=== PATIENT | male | born 1975 | race Native Hawaiian/Other Pacific Islander ===

== ENCOUNTER 2020-07-09 12:33 | Outpatient (CLI) | payer OTHER | END 2020-07-09 23:58 | disposition home or self-care (01) | LOC: MRI 12:33 | DX: M54.16 Radiculopathy, lumbar region (principal); M54.6 Pain in thoracic spine | CPT/HCPCS: A9576 ==

== ENCOUNTER 2020-09-08 11:08 | Outpatient (CLI) | payer OTHER ==
[2020-08-12 09:49] LABS: PARTIAL THROMBOPLASTIN TIME 25.1 SECONDS (24.5-33.6)
[~2020-09-08] VITALS: Ht 30.5 cm; Wt 0.5 kg
== END 2020-09-08 19:49 | disposition home or self-care (01) ==
LOC: CT 11:08
PROVIDERS: ATTEND Neurological Surgery
DX: R22.2 Localized swelling, mass and lump, trunk (principal)
CPT/HCPCS: 36415; 82565; 84520; 85610; 85730; Q9963

== ENCOUNTER 2020-11-08 14:05 | Outpatient (CLI) | payer OTHER | END 2020-11-08 20:46 | disposition home or self-care (01) | LOC: LAB 14:05 → MRI 14:05 | PROVIDERS: ATTEND Neurological Surgery | DX: M54.6 Pain in thoracic spine (principal) | CPT/HCPCS: 36415; 82565; 84520; A9576 ==

== ENCOUNTER 2020-11-11 10:45 | Emergency (ER) | payer OTHER ==
[~2020-11-11] VITALS: Ht 165.1 cm; Wt 72.6 kg
[2020-11-11 10:45] VITALS: TEMP 98.4
[2020-11-11 13:02] VITALS: BP 140/82
== END 2020-11-11 13:02 | disposition home or self-care (01) ==
LOC: ED 10:52
DX: S39.011A Strain of muscle, fascia and tendon of abdomen, initial encounter (principal); Z98.890 Other specified postprocedural states
CPT/HCPCS: 99282; 99283